=== PATIENT | female | born 1995 | race Caucasian/White ===

== ENCOUNTER 2020-11-02 02:18 | Emergency (ER) | payer MEDICARE, OTHER ==
[~2020-11-02] VITALS: Ht 167.6 cm; Wt 90.7 kg
[2020-11-02 02:19] VITALS: BP 107/79
== END 2020-11-02 04:30 ==
LOC: ER 02:25
DX: S05.12XA Contusion of eyeball and orbital tissues, left eye, initial encounter (principal); Y04.2XXA Assault by strike against or bumped into by another person, initial encounter; Y93.89 Activity, other specified; Y92.89 Other specified places as the place of occurrence of the external cause; Y99.8 Other external cause status
CPT/HCPCS: 70450; 72125

== ENCOUNTER 2020-12-13 13:38 | Emergency (ER) | payer MEDICARE, MEDICAID ==
[~2020-12-13] VITALS: Ht 170.2 cm; Wt 93.4 kg
[2020-12-13 15:56] VITALS: BP 140/73
== END 2020-12-13 17:06 | disposition home or self-care (01) ==
LOC: ER 13:38
DX: J03.90 Acute tonsillitis, unspecified (principal); J06.9 Acute upper respiratory infection, unspecified; Z88.8 Allergy status to other drugs, medicaments and biological substances
CPT/HCPCS: 71046

== ENCOUNTER 2022-09-05 00:58 | Emergency (ER) | payer OTHER, MEDICAID ==
[~2022-09-05] VITALS: Ht 170.2 cm; Wt 106.4 kg
[2022-09-05] MEDS ORDERED: ONDANSETRON ODT 4 MG TAB PO ONE (01:30)
[2022-09-05] MEDS ORDERED: KETOROLAC TROMETH 30 MG/ML 1ML VIAL IV ONE (01:30)
[2022-09-05 02:03] LABS: Basophils # (auto) 0 10 ^3/uL (0-0.2); Basophils % (auto) 0.5 % (0.0-2.0); Eosinophils # (auto) 0.1 10 ^3/uL (0-0.8); Eosinophils % (auto) 1.4 % (0.0-7.0); Hematocrit 39.3 % (36.0-46.0); Hemoglobin 13.5 g/dL (12.2-16.2); Lymphocytes # (auto) 2.4 10 ^3/uL (0.4-5.4); Lymphocytes % (auto) 24.5 % (10.0-50.0); Mean Corpuscular Hemoglobin 29.6 pg (28.0-32.0); Mean Corpuscular Hgb Conc. 34.3 g/dL (32.0-36.0); Mean Corpuscular Volume 86.4 fL (80.0-100.0); Monocytes # (auto) 0.5 10 ^3/uL (0-1.3); Monocytes % (auto) 5.5 % (0.0-12.0); Neutrophils # (auto) 6.7 10 ^3/uL (1.6-8.6); Neutrophils % (auto) 68.1 % (37.0-80.0); Nucleated Red Blood Cells % 0.1 %; Red Blood Cells 4.55 10^6/uL (4.0-5.20); Red Cell Distribution Width 12.7 % (11.8-14.3); White Blood Cell 9.8 10^3/uL (4.4-10.8)
[2022-09-05 02:23] LABS: Albumin 3.7 g/dL (3.4-5.0); Calcium 8.6 mg/dL (8.5-10.1); Potassium 3.5 mmol/L (3.5-5.1)
[2022-09-05 02:25] LABS: BUN/Creatinine Ratio 24.2
[2022-09-05 02:27] LABS: Bilirubin, Total 0.3 mg/dL (0.2-1.0); Total Protein 7.3 g/dL (6.4-8.2)
[2022-09-05 04:38] VITALS: BP 142/81
== END 2022-09-05 04:40 | disposition home or self-care (01) ==
LOC: ER 00:59
DX: R10.30 Lower abdominal pain, unspecified (principal); M79.7 Fibromyalgia; M32.9 Systemic lupus erythematosus, unspecified
CPT/HCPCS: 36415; 80053; 83690; 85025; 96374; 99283; J1885; Q0162

== ENCOUNTER 2024-06-17 01:23 | Emergency (ER) | payer MEDICAID, OTHER ==
[~2024-06-17] VITALS: Ht 167.6 cm; Wt 113.9 kg
--- NOTE | 2024-06-17 02:07 | ED.PDOC ---
History of Present Illness HPI Comments 28-year-old female with no PMHx presents with a chief complaint of flank pain, abdominal pain, nausea, and constipation. Patient states that her pain is localized to her right flank, non-radiating, describes as aching. Patient mentions that her abdominal pain is localized to her epigastric region, non-radiating, and rates her pain a 5/10. Patient mentions that she was recently diagnosed with a renal stone at [facility] "a few weeks ago". Patient reports that she called the nurse advice line and was instructed to go to the ER. Patient denies any urinary symptoms at this time. Chief Complaint: Flank Pain Time Seen by MD: 01:50 Primary Care Provider: NONE Reviewed Notes: Medications, Allergies Allergies: Coded Allergies: Diphenhydramine (Verified Allergy, Unknown, 11/02/20) Information Source: Patient Mode of Arrival: Ambulatory Severity: Moderate Timing: Days Duration: Since onset Prehospital treatment: None Past Medical History PAST MEDICAL HISTORY: Denies Surgical History: Denies all surgeries DEVELOPMENT SPEC History: Denies all DEVELOPMENT SPEC Hx Family History Family History: Reviewed,noncontributory to illness Social History Smoker: Non-Smoker Alcohol: Denies ETOH Use Drugs: Denies Drug Use Lives In: Home Constitutional: denies: chills, diaphoresis, fatigue, fever, malaise, sweats, weakness, others EENTM: denies: blurred vision, double vision, ear bleeding, ear discharge, ear drainage, ear pain, ear ringing, eye pain, eye redness, hearing loss, mouth pain, mouth swelling, nasal discharge, nose bleeding, nose congestion, nose pain, photophobia, tearing, throat pain, throat swelling, voice changes, others Respiratory: denies: cough, hemoptysis, orthopnea, SOB at rest, shortness of breath, SOB with excertion, stridor, wheezing, others Cardiovascular: denies: chest pain, dizzy spells, diaphoresis, Dyspnea on exertion, edema, irregular heart beat, left arm pain, lightheadedness, palpitations, PND, syncope, others Gastrointestinal: reports: constipated, nausea; denies: abdomen distended, abdominal pain, blood streaked bowels, diarrhea, dysphagia, difficulty swallowing, hematemesis, melena, poor appetite, poor fluid intake, rectal bleeding, rectal pain, vomiting, others Genitourinary: reports: flank pain; denies: abnormal vagina bleeding, burning, dyspareunia, dysuria, frequency, hematuria, incontinence, pain, , vagina discharge, urgency, others Neurological: denies: dizziness, fainting, headache, left sided numbness, left sided weakness, numbness, paresthesia, pre-existing deficit, right sided numbness, right sided weakness, seizure, speech problems, tingling, tremors, weakness, others Musculoskeletal: denies: back pain, gout, joint pain, joint swelling, muscle pain, muscle stiffness, neck pain, others Integumetry: denies: bruises, change in color, change in hair/nails, dryness, laceration, lesions, lumps, rash, wounds, others Allergic/Immunocompromised: denies: Difficulty Healing, Frequent Infections, Hives, Itching, others Hematologic/Lymphatic: denies: anemia, blood clots, easy bleeding, easy bruising, swollen glands, others Endocrine: denies: excessive hunger, excessive sweating, excessive thirst, excessive urination, flushing, intolerance to cold, intolerance to heat, unexplained weight gain, unexplained weight loss, others Psychiatric: denies: anxiety, bipolar disorder, depression, hopeless, panic disorder, schizophrenia, sleepless, suicidal, others All Other Systems: Reviewed and Negative Physical Exam General Appearance: No Apparent Distress, Normal HEENT: Normal ENT Inspection, Pharynx Normal, TMs Normal Neck: Full Range of Motion, Non-Tender, Normal, Normal Inspection Respiratory: Chest Non-Tender, Lungs Clear, No Accessory Muscle Use, No Respi ratory Distress, Normal Breath Sounds Cardiovascular: No Edema, No JVD, No Murmur, No Gallop, Normal Peripheral Pulses, Regular Rate/Rhythm Breast Exam: Deferred Gastrointestinal: No Organomegaly, Non Tender, No Pulsatile Mass, Normal Bowel Sounds, Soft Genitalia: Deferred Pelvic: Deferred Rectal: Deferred Extremities: No calf tenderness, Normal capillary refill, Normal inspection, Normal range of motion, Non-tender, No pedal edema Musculoskeletal : Apperance: Normal Neurologic: Alert, window sash installer II-XII nml as Tested, No Motor Deficits, Normal Affect, Normal Mood, No Sensory Deficits Cerebellar Function: Normal Reflexes: Normal Skin: Dry, Normal Color, Warm Lymphatic: No Adenopathy Was a procedure done? Was a procedure done?: No Differential Dx Considerations may include: UTI, pyelonephritis, renal colic X-Ray, Labs, Meds, VS Vital Signs Date Time Temp Pulse Resp B/P (MAP) Pulse Ox O2 Delivery O2 Flow Rate FiO2 06/17/24 04:17 84 16 99 Room Air* 0 21 06/17/24 04:17 98.0 84 16 180/86 (117) 99 98.0 06/17/24 01:58 98.6 79 16 125/62 (83) 100 Lab Test 06/17/24 02:30 06/17/24 02:10 Range/Units Urine Color Light-yellow Yellow Urine Clarity Turbid H Clear Urine pH 5.5 5.0-9.0 Urine Specific [place] 1.015 1.001-1.035 Urine Protein Negative Negative Urine Ketones Negative Negative Urine Blood Negative Negative /uL Urine Nitrite Negative Negative Urine Bilirubin Negative Negative Urine Urobilinogen Normal Negative mg/dL Urine Leukocyte Esterase Trace Negative /uL Urine RBC 1 0 - 4 /hpf Urine WBC 2 0 - 5 /hpf Urine Squamous Epithelial Cells Few <5 /hpf Urine Bacteria Many H None Seen /hpf Urine Glucose Normal Normal mg/dL Urine Test Negative Negative White Blood Count 6.9 4.4-10.8 10^3/uL Red Blood Count 4.53 4.0-5.20 10^6/uL Hemoglobin 13.2 12.2-16.2 g/dL Hematocrit 39.9 36.0-46.0 % Mean Corpuscular Volume 88.1 80.0-100.0 fL Mean Corpuscular Hemoglobin 29.2 28.0-32.0 pg Mean Corpuscular Hemoglobin Concent 33.2 32.0-36.0 g/dL Red Cell Distribution Width 12.4 11.8-14.3 % Platelet Count 266 140-450 10^3/uL Mean Platelet Volume 8.8 6.9-10.8 fL Neutrophils (%) (Auto) 50.9 37.0-80.0 % Lymphocytes (%) (Auto) 39.0 10.0-50.0 % Monocytes (%) (Auto) 7.6 0.0-12.0 % Eosinophils (%) (Auto) 2.1 0.0-7.0 % Basophils (%) (Auto) 0.4 0.0-2.0 % Neutrophils # (Auto) 3.5 1.6-8.6 10 ^3/uL Lymphocytes # (Auto) 2.7 0.4-5.4 10 ^3/uL Monocytes # (Auto) 0.5 0-1.3 10 ^3/uL Eosinophils # (Auto) 0.1 0-0.8 10 ^3/uL Basophils # (Auto) 0 0-0.2 10 ^3/uL Nucleated Red Blood Cells 0.1 % Sodium Level 141 136-145 mmol/L Potassium Level 3.8 3.5-5.1 mmol/L Chloride Level 107 98-107 mmol/L Carbon Dioxide Level 24 20-31 mmol/L Anion Gap 10 5-15 Blood Urea Nitrogen 7 L 9-23 mg/dL Creatinine 0.63 0.550-1.02 mg/dL Glomerular Filtration Rate Calc 125 >90 mL/min BUN/Creatinine Ratio 11.1 10.0-20.0 Serum Glucose 107 H 74-106 mg/dL Calcium Level 9.3 8.7-10.4 mg/dL Total Bilirubin 0.4 0.2-1.0 mg/dL Aspartate Amino Transferase (AST) 12 L 13-40 U/L Alanine Aminotransferase (ALT) 28 7-40 U/L Alkaline Phosphatase 98 46-116 U/L Total Protein 6.5 5.7-8.2 g/dL Albumin 4.4 3.2-4.8 g/dL Lipase 43 12-53 U/L Current Medications Medications (Trade) Dose Ordered Sig/Anil Route Start Time Stop Time Status Last Admin Ceftriaxone Sodium 50 ml @ 100 mls/hr ONCE ONCE IV 06/17/24 03:45 06/17/24 04:14 DC 06/17/24 04:30 Sodium Chloride 1,000 ml @ 1,000 mls/hr Q1H ONCE IV 06/17/24 03:45 06/17/24 04:44 DC 06/17/24 04:30 Time of 1ST Reevaluation: 02:20 Reevaluation 1ST: Unchanged Patient Education/Counseling: Diagnosis, Treatment, Prognosis Family Education/Counseling: No Family Present Departure 1 Departure Time of Disposition: 05:07 (Patient presents with pyelonephritis and failed patient will antibiotics. We will discharge patient with different antibiotics) Impression: Primary Impression: Pyelonephritis Disposition: 01 HOME / SELF CARE / HOMELESS Condition: Stable Additional Instructions: You have a urinary tract infection. You were prescribed antibiotics. Please take as directed. You can take Tylenol Motrin as needed for pain. It is important that he follow up with the regular doctor within 1 week to ensure you are doing better. If your symptoms worsen or you have any other concerns then please return to the emergency room. e-Prescriptions Cefdinir (Cefdinir) 300 Mg Cap 1 CAP PO BID for 7 Days, #14 CAP Prov: WOODY HERRERA MD 06/17/24 Discharged With: Self Critical Care Note Critical Care Time?: No Stability Stability form required: No I personally scribed for WOODY HERRERA MD ([email or web address]) on 06/17/24 at 02:07. Electronically submitted by Ricky Pardo ([email or web address]). WOODY HERRERA MD Jun 17, 2024 02:07
[2024-06-17 02:52] LABS: Alanine Aminotransferase 28 U/L (7-40); Albumin 4.4 g/dL (3.2-4.8); Alkaline Phosphatase 98 U/L (46-116); Anion Gap 10 (5-15); Basophils # (auto) 0 10 ^3/uL (0-0.2); Basophils % (auto) 0.4 % (0.0-2.0); Calcium 9.3 mg/dL (8.7-10.4); Carbon Dioxide 24 mmol/L (20-31); Eosinophils # (auto) 0.1 10 ^3/uL (0-0.8); Eosinophils % (auto) 2.1 % (0.0-7.0); Hematocrit 39.9 % (36.0-46.0); Hemoglobin 13.2 g/dL (12.2-16.2); Lipase 43 U/L (12-53); Lymphocytes # (auto) 2.7 10 ^3/uL (0.4-5.4); Mean Corpuscular Hemoglobin 29.2 pg (28.0-32.0); Mean Corpuscular Hgb Conc. 33.2 g/dL (32.0-36.0); Mean Corpuscular Volume 88.1 fL (80.0-100.0); Monocytes # (auto) 0.5 10 ^3/uL (0-1.3); Monocytes % (auto) 7.6 % (0.0-12.0); Neutrophils # (auto) 3.5 10 ^3/uL (1.6-8.6); Neutrophils % (auto) 50.9 % (37.0-80.0); Nucleated Red Blood Cells % 0.1 %; Platelet Count (auto) 266 10^3/uL (140-450); Potassium 3.8 mmol/L (3.5-5.1); Red Blood Cells 4.53 10^6/uL (4.0-5.20); Red Cell Distribution Width 12.4 % (11.8-14.3); Sodium 141 mmol/L (136-145); White Blood Cell 6.9 10^3/uL (4.4-10.8)
[2024-06-17 02:53] LABS: Bilirubin, Total 0.4 mg/dL (0.2-1.0); Total Protein 6.5 g/dL (5.7-8.2)
[2024-06-17 02:59] LABS: Aspartate Aminotransferase 12 U/L (13-40); Chloride 107 mmol/L (98-107); Glucose 107 mg/dL (74-106)
[2024-06-17 03:05] LABS: Urine Bacteria MANY /hpf (None Seen); Urine Blood Negative /uL (Negative); Urine Clarity Turbid (Clear); Urine Color Light-Yellow (Yellow); Urine Protein, UAD Negative (Negative); Urine Specific Gravity 1.015 (1.001-1.035); Urine Urobilinogen Normal (Negative); Urine WBC 2 /hpf (0 - 5); Urine pH 5.5 (5.0-9.0)
[2024-06-17 03:19] LABS: BUN/Creatinine Ratio 11.1 (10.0-20.0)
[2024-06-17 03:20] LABS: Blood Urea Nitrogen 7 mg/dL (9-23)
[2024-06-17 04:17] VITALS: BP 180/86; PULSE 84; RESP 16; TEMP 98; O2SAT 99
[2024-06-17] MEDS: cefTRIAXone 1GM/50ML D5W 50 ML IV ONE (04:30)
[2024-06-17] MEDS: SODIUM CHLORIDE 0.9% 1,000 ML IV ONE (04:30)
[2024-06-17] MEDS ORDERED: CEFD300C2 PO (05:09)
== END 2024-06-17 05:59 | disposition home or self-care (01) ==
LOC: ER 01:23
DX: N12 Tubulo-interstitial nephritis, not specified as acute or chronic (principal); K59.00 Constipation, unspecified; Z88.8 Allergy status to other drugs, medicaments and biological substances
CPT/HCPCS: 36415; 80053; 81001; 81025; 83690; 85025; 96365; 99284; J0696; J7030

== ENCOUNTER 2024-07-07 17:33 | Emergency (ER) | payer OTHER, MEDICAID ==
[~2024-07-07] VITALS: Ht 170.2 cm; Wt 112.9 kg
[~2024-07-07 17:33] MED LIST: CEFD300C2 PO
[2024-07-07 18:11] LABS: Urine Bacteria None Seen /hpf (None Seen)
[2024-07-07 18:23] LABS: Urine Blood Negative /uL (Negative); Urine Clarity Turbid (Clear); Urine Color Yellow (Yellow); Urine Hyaline Cast FEW /lpf (0 - 2); Urine Mucus FEW (None Seen); Urine Protein, UAD TRACE (Negative); Urine Specific Gravity 1.031 (1.001-1.035); Urine Squamous Epithelial Cell MOD /hpf (<5); Urine Urobilinogen Normal (Negative); Urine WBC 17 /hpf (0 - 5); Urine pH 5.5 (5.0-9.0)
[2024-07-07] MEDS ORDERED: CYCL-837 PO (19:13)
[2024-07-07] MEDS ORDERED: IBUP-1455 PO (19:13)
--- NOTE | 2024-07-07 19:14 | ED.PDOC ---
History of Present Illness HPI Comments 28-year-old female complaining of back pain has been going on for the last three weeks. States three weeks ago she had a slip and fall in her bathroom hitting her right knee on the edge of the toilet preventing her from falling already the floor. Patient states she also has history of recurrent urinary tract infections. She was treated for urinary tract infection three weeks ago. States she believes her urinary symptoms have improved. Patient was still having mild right lumbar back pain. Chief Complaint: Back Pain Time Seen by MD: 17:40 Primary Care Provider: UNKNOWN Reviewed Notes: Nurses Notes Allergies: Coded Allergies: Magnesium Hydroxide (Verified Allergy, Severe, 07/07/24) Diphenhydramine (Verified Allergy, Unknown, 11/02/20) Home Meds Active Scripts Cefdinir (Cefdinir) 300 Mg Cap, 1 CAP PO BID for 7 Days, #14 CAP Prov:WOODY HERRERA MD 06/17/24 Information Source: Patient Mode of Arrival: Ambulatory Past Medical History PAST MEDICAL HISTORY: Denies Surgical History: Denies all surgeries REVIEW TRAINER History: Denies all REVIEW TRAINER Hx Family History Family History: Reviewed,noncontributory to illness Social History Smoker: Non-Smoker Alcohol: Denies ETOH Use Drugs: Denies Drug Use Lives In: Home Constitutional: denies: chills, diaphoresis, fatigue, fever, malaise, sweats, weakness, others EENTM: denies: blurred vision, double vision, ear bleeding, ear discharge, ear drainage, ear pain, ear ringing, eye pain, eye redness, hearing loss, mouth pain, mouth swelling, nasal discharge, nose bleeding, nose congestion, nose pain, photophobia, tearing, throat pain, throat swelling, voice changes, others Respiratory: denies: cough, hemoptysis, orthopnea, SOB at rest, shortness of breath, SOB with excertion, stridor, wheezing, others Cardiovascular: denies: dizzy spells, diaphoresis, Dyspnea on exertion, edema, irregular heart beat, left arm pain, lightheadedness, palpitations, PND, syncope, others Gastrointestinal: denies: abdomen distended, abdominal pain, blood streaked bowels, constipated, diarrhea, dysphagia, difficulty swallowing, hematemesis, melena, nausea, poor appetite, poor fluid intake, rectal bleeding, rectal pain, vomiting, others Genitourinary: denies: abnormal vagina bleeding, burning, dyspareunia, dysuria, flank pain, frequency, hematuria, incontinence, pain, , vagina discharge, urgency, others Neurological: denies: dizziness, fainting, headache, left sided numbness, left sided weakness, numbness, paresthesia, pre-existing deficit, right sided numbness, right sided weakness, seizure, speech problems, tingling, tremors, weakness, others Musculoskeletal: reports: back pain, joint pain; denies: gout, joint swelling, muscle pain, muscle stiffness, neck pain, others Integumetry: denies: bruises, change in color, change in hair/nails, dryness, laceration, lesions, lumps, rash, wounds, others Allergic/Immunocompromised: denies: Difficulty Healing, Frequent Infections, Hives, Itching, others Hematologic/Lymphatic: denies: anemia, blood clots, easy bleeding, easy bruising, swollen glands, others Endocrine: denies: excessive hunger, excessive sweating, excessive thirst, excessive urination, flushing, intolerance to cold, intolerance to heat, unexplained weight gain, unexplained weight loss, others Psychiatric: denies: anxiety, bipolar disorder, depression, hopeless, panic disorder, schizophrenia, sleepless, suicidal, others Physical Exam General Appearance: No Apparent Distress, Normal HEENT: Normal ENT Inspection, Pharynx Normal, TMs Normal Neck: Full Range of Motion, Non-Tender, Normal, Normal Inspection Respiratory: Chest Non-Tender, Lungs Clear, No Accessory Muscle Use, No Respiratory Distress, Normal Breath Sounds Cardiovascular: No Edema, No JVD, No Murmur, No Gallop, Normal Peripheral Pulses, Regular Rate/Rhythm Breast Exam: Deferred Gastrointestinal: No Organomegaly, Non Tender, No Pulsatile Mass, Normal Bowel Sounds, Soft Genitalia: Deferred Pelvic: Deferred Rectal: Deferred Extremities: No calf tenderness, Normal capillary refill, Normal inspection, Normal range of motion, Non-tender, No pedal edema Musculoskeletal : Location: Right Extremity Location: Back (Right lumbar region tender to palpation.), Knee (Right knee mild tenderness to palpation over the lateral side of the knee. A ble to bear full weight.) Apperance: Normal Neurologic: Alert, change coordinator II-XII nml as Tested, No Motor Deficits, Normal Affect, Normal Mood, No Sensory Deficits Cerebellar Function: Normal Reflexes: Normal Skin: Dry, Normal Color, Warm Lymphatic: No Adenopathy Was a procedure done? Was a procedure done?: No Differential Dx Considerations may include: Lumbar strain, UTI, kidney stone X-Ray, Labs, Meds, VS Vital Signs Date Time Temp Pulse Resp B/P (MAP) Pulse Ox O2 Delivery O2 Flow Rate FiO2 07/07/24 17:45 99.5 124 16 144/73 (96) 98 Lab Test 07/07/24 18:09 Range/Units Urine Color Yellow Yellow Urine Clarity Turbid H Clear Urine pH 5.5 5.0-9.0 Urine Specific [place] 1.031 1.001-1.035 Urine Protein Trace H Negative Urine Ketones Trace Negative Urine Blood Negative Negative /uL Urine Nitrite Negative Negative Urine Bilirubin Negative Negative Urine Urobilinogen Normal Negative mg/dL Urine Leukocyte Esterase 2+ Negative /uL Urine RBC 2 0 - 4 /hpf Urine WBC 17 0 - 5 /hpf Urine Squamous Epithelial Cells Mod <5 /hpf Urine Bacteria None seen None Seen /hpf Urine Hyaline Casts Few 0 - 2 /lpf Urine Mucus Few None Seen Urine Glucose Normal Normal mg/dL X-Ray, Labs, Meds, VS Comment Imaging: X-rays and CT scans were reviewed and interpreted by this provider, imaging shows no fractures and no pathological disease. Pending radiology review. Laboratory: Labs reviewed and interpreted by this provider. No significant abnormalities noted. Patient has prior medical visits reviewed. Med reconciliation performed Vital signs reviewed Time of 1ST Reevaluation: 19:13 Reevaluation 1ST: Improved Patient Education/Counseling: Diagnosis, Treatment, Need For Follow Up (Follow up with the PCP in the next 2-4 days. Return to the emergency department if symptoms worsen over the next 48 hours) Family Education/Counseling: No Family Present Departure 1 Departure Time of Disposition: 19:12 Impression: Primary Impression: Musculoskeletal pain Additional Impression: Lumbar sprain Qualified Codes: S33.5XXA - Sprain of ligaments of lumbar spine, initial encounter Disposition: HOME / SELF CARE / HOMELESS Condition: Fair e-Prescriptions Cyclobenzaprine Hcl (Cyclobenzaprine Hcl) 5 Mg Tab 1 TAB PO TID PRN, #30 TAB Prov: GURDEEP MELENDREZ 07/07/24 Ibuprofen Micronized (Ibuprofen) 800 Mg Tab 800 MG PO TID PRN, #40 TAB Prov: GURDEEP MELENDREZ 07/07/24 Discharged With: Self Critical Care Note Critical Care Time?: No Stability Stability form required: No Heart Score Heart Score: Heart Score Response (Comments) Value History N/A 0 EKG N/A 0 Age N/A 0 Risk Factors N/A 0 Troponin N/A 0 Total 0 GURDEEP MELENDREZ Jul 07, 2024 19:14
[2024-07-07 20:10] VITALS: BP 136/92; PULSE 94; RESP 16; TEMP 97.8; O2SAT 96
[2024-07-07] MEDS ORDERED: MONT10TA23 PO (20:17)
[2024-07-07] MEDS ORDERED: PROM1SOL4 PO (20:17)
== END 2024-07-07 20:41 | disposition home or self-care (01) ==
LOC: ER 17:33
DX: S33.5XXA Sprain of ligaments of lumbar spine, initial encounter (principal); M54.50 Low back pain, unspecified; Z79.899 Other long term (current) drug therapy; Z88.8 Allergy status to other drugs, medicaments and biological substances; W01.198A Fall on same level from slipping, tripping and stumbling with subsequent striking against other object, initial encounter; Y93.89 Activity, other specified; Y92.091 Bathroom in other non-institutional residence as the place of occurrence of the external cause; Y99.2 Volunteer activity
CPT/HCPCS: 81001

== ENCOUNTER 2024-09-10 17:46 | Emergency (ER) | payer OTHER, MEDICAID ==
[~2024-09-10] VITALS: Ht 167.6 cm; Wt 110.6 kg
[~2024-09-10 17:46] MED LIST changes: +CYCL-837 PO; +IBUP-1455 PO; +MONT10TA23 PO; +PROM1SOL4 PO
[2024-09-10 18:23] LABS: Urine Bacteria None Seen /hpf (None Seen)
[2024-09-10 18:43] LABS: Urine Blood Negative /uL (Negative); Urine Clarity Clear (Clear); Urine Color Colorless (Yellow); Urine Protein, UAD Negative (Negative); Urine Specific Gravity 1.012 (1.001-1.035); Urine Squamous Epithelial Cell FEW /hpf (<5); Urine Urobilinogen Normal (Negative); Urine WBC 2 /HPF (0-5)
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
--- NOTE | 2024-09-10 19:37 | DVH ---
Exam: CT CT AB PEL WO CON-NO ORAL OR IV History: pelvic pain Comparison Study: None available TECHNIQUE: Multidetector CT of the abdomen and pelvis was performed from lung bases to pubic symphysi s. Imaging was performed without IV contrast. Axial, coronal, and sagittal multiplanar reformats were obtained from the axial data set by the technologist. RADIATION DOSE: DLP 1486.99 mGy.cm; CTDI vol 26.55 mGy. Findings: Lungs: The lung bases are clear. Heart: No cardiomegaly or pericardial effusion. Liver: Unremarkable. Gallbladder: Unremarkable. Spleen: Unremarkable Pancreas: Unremarkable Adrenals: Unremarkable Kidneys: Unremarkable GI tract: Submucosal fat deposition of the transverse and descending colons. Normal appendix. : Unremarkable. Vasculature: Unremarkable Lymphadenopathy: Mildly prominent mesenteric lymph nodes in the right lower quadrant. Peritoneum: No ascites Musculoskeletal: Unremarkable Soft tissues: Unremarkable Impression: 1. No acute abdominopelvic abnormalities. 2. Slightly prominent right lower quadrant mesenteric nodes. Correlate for mesenteric adenitis. 3. Submucosal fat deposition of the transverse and descending colons. Correlate for inflammatory bow el disease.
[2024-09-10] MEDS ORDERED: IBUP-1456 PO (20:30)
[2024-09-10 20:43] VITALS: PULSE 78; RESP 17; O2SAT 100
[2024-09-10 20:44] VITALS: BP 117/91; PULSE 78; RESP 12; TEMP 98.1; O2SAT 97
[2024-09-10] MEDS: KETOROLAC TROMETH 30 MG/ML 1ML VIAL IM ONE (20:49)
== END 2024-09-10 20:51 | disposition home or self-care (01) ==
LOC: ER 17:59
DX: R30.0 Dysuria (principal); I88.0 Nonspecific mesenteric lymphadenitis; M79.7 Fibromyalgia; Z88.1 Allergy status to other antibiotic agents
CPT/HCPCS: 74176; 81001